=== PATIENT | male | born 1950 | race Caucasian/White ===

== ENCOUNTER 2025-04-07 12:57 | Outpatient (AMB) | payer MEDICARE, SELFPAY ==
--- NOTE | 2025-04-07 13:00 | MHC.OFFVIS ---
Intake Visit Reasons: 6m Accompanied by: Spouse Allergies moxifloxacin (Avelox) Allergy (Unknown, Verified 04/07/25 13:05) Unknown Medication List - Last Reconciled 04/07/25 by Christie Nieves CNP atorvastatin 80 mg PO DAILY levetiracetam 500 mg PO BID HPI Comments Details: He was doing okay. No seizures. He was taking levetiracetam twice a day. No missed doses. No medication side effects. Sleep was okay. Mood was okay. Scheduled for hernia repair surgery in 05/2025 at [facility]. He had his second seizure on 03/22/24 with hand thrashing, blank stare and his right hand went up then a generalized seizure for 2 minutes and post ictal for [address] negative. On 08/19/23, around 1 PM, 16 hours after his last beer, he started acting confused and took laundry out into the yard. His came home and found him in the yard with keys in the other hand and when she called him he just stared and did not respond, his right arm went up, he started to make an noise, spun around 3 times and fell flat on his face. He was pale and his breathing was labored. She made room for him to be able to breathe. Ambulance was there in 3 min. He was taken to [facility] treated for alcohol withdrawal and then given folic acid and B1. All of his workup was apparently negative and therefore it was considered alcohol related. He has stopped drinking completely. No previous history of seizure or syncope. PFSH Medical History HLD (hyperlipidemia) Seizure disorder Alcohol abuse Review of Systems Const Denies chills, Denies daytime sleepiness, Denies difficulty sleeping, Denies fatigue, Denies fever(s), Denies frequent falls, Denies headache(s), Denies increased appetite, Denies poor appetite, Denies snoring, Denies weakness, Denies weight gain and Denies weight loss Eyes Denies loss of vision ENT Denies vertigo, Denies dizziness, Denies headache(s) and Denies neck pain Card Denies chest pain at rest, Denies chest pain with activity, Denies syncope, Denies leg edema, Denies palpitations, Denies dyspnea and Denies dyspnea on exertion Resp Denies cough, Denies dyspnea, Denies dyspnea on exertion and Denies snoring GI Denies abdominal pain, Denies constipation, Denies heartburn, Denies diarrhea and Denies nausea Denies urinary frequency, Denies urinary incontinence and Denies urinary urgency Musc Denies abnormal gait, Denies back pain, Denies myalgias, Denies arthralgias, Denies neck pain, Denies numbness and Denies tingling Neuro Denies abnormal gait, Denies vertigo, Denies dizziness, Denies syncope, Denies frequent falls, Denies headache(s), Denies lack of coordination, Denies loss of vision, Denies memory loss, Denies numbness, Denies Other visual disturbances, Denies restless legs, Denies seizure-like activity, Denies tingling, Denies paresthesias, Denies tremor(s) and Denies weakness Psych Denies anxiety, Denies depression, Denies auditory hallucinations, Denies memory loss and Denies visual hallucinations Endo Denies fatigue and Denies palpitations Physical Exam Const Other: General Appearance:? normal, in no acute distress. Heart:? S1, S2 normal, no murmurs. Lungs:? clear anteriorly and posteriorly. Musculoskeletal:? normal. Extremities:? no edema. Psych:? alert, oriented, cognitive function intact, cooperative with exam. Neuro Other: Abnormal Neurological Findings:?none.? Mental Status: alert and oriented X 3. Normal attention, orientation, memory, and affect. Cranial Nerves: Pupils are equal, round, and reactive to light. External ocular muscles are intact. Visual clinton are full, no ptosis. Face is symmetrical, no facial weakness or droop. Facial sensations are normal. Tongue protrudes in midline. Palate elevates symmetrically. Shoulder shrugging is normal Motor Examination: Normal muscle tone, bulk and strength. No atrophy or fasciculations. No drift of the extended upper extremities. DTR 2+. Plantars are flexor. Straight Leg Raisin degrees. Sensory Exam: Normal light touch, temperature, pinprick, vibration, and joint-position sensations. Rhomberg sign is absent. Coordination: No ataxia. No titubation. Zyskha-ys-orcw, srea-sarf-fbie test, and rapid alternating movements were normal. Gait Exam: Within normal limits. Cerebellar Signs: Etevro-yn-rblx and alai-ps-agaa is normal. No dysdiadochokinesia. Extrapyramidal System: No tremor, rigidity with normal facial expressions. No bradykinesia. No bradyphrenia. Normal arm swing and posture. No propulsion or retropulsion. Speech: Normal. No dysphasia or dysarthria. Assessment & Plan Assessment & Plan (1) Seizure disorder: Code(s): G40.909 - Epilepsy, unspecified, not intractable, without status epilepticus Category: Medical Plan: Continue levetiracetam 500mg 1 tablet twice a day Coding Level of Care Code Est Pt Level 3 (65772) Diagnoses Seizure disorder G40.909
--- OUTSIDE RECORDS SUMMARY | 2025-04-07 13:49 | XMS_ITS | Clinical Summary ---
Author Organization 175 [facility] Address [address] [place] [address] Phone Care Team Providers Care Payroll Human Resources Assistant Name Role Phone Jerome Mclaughlin MD Primary Care Provider [phone] Allergies No known active allergies Medications atorvastatin (LIPITOR) 80 mg tablet TAKE 1 TABLET BY MOUTH EVERY DAY 90 tablet 3 08/10/2024 Active levETIRAcetam (KEPPRA) 500 mg tablet Take 1 tablet (500 mg total) by mouth 2 (two) times a day. Active Active Problems Problem Noted Date Diagnosed Date Atrial premature depolarization 03/29/2025 Assessment & Plan (03/30/2025 2:22 PM EDT): The patient has frequent atrial and ventricular premature complexes without associated symptoms. He has not had evidence of hemodynamically significant dysrhythmia and has never had presyncope or syncope. He has not any documentation of atrial fibrillation. The patient acknowledges quite a remarkable amount of stimulant ingestion including several cups of coffee and several cans of Coca-Cola over the course of the day. He also smokes marijuana. He formerly ingested significant amounts of alcohol but stopped this after sustaining a seizure several months ago. Orders: ECG 12 lead Recurrent right inguinal hernia 02/04/2025 Assessment & Plan (03/30/2025 2:22 PM EDT): Dr. Soares plans to perform repeat right inguinal herniorrhaphy due to presumed disruption of the mesh following intensive lifting. Hernia repair would be performed at low risk for cardiac complications. I do not feel that the patient requires further cardiac studies prior to anticipated surgery in the near future. Orders: ECG 12 lead Mixed hyperlipidemia 10/10/2023 Assessment & Plan (03/30/2025 2:22 PM EDT): The patient has a positive family history for premature atherosclerosis as well as treated hyperlipidemia. He has not had any manifestations of coronary or cerebrovascular insufficiency. LDL 53 mg/dl meets goal. Orders: ECG 12 lead Assessment & Plan (2025 12:20 PM EDT): Stable on Lipitor. Orders: CBC and differential; Future Comprehensive metabolic panel; Future Lipid panel with reflex to direct LDL; Future Thyroid stimulating hormone; Future Encounters Date Type Department Care Team Description 03/30/2025 1:30 PM EDT Office Visit [facility] Cardiology [address] [place] [address] Ale Healy MD Mixed hyperlipidemia (Primary Dx); Atrial premature depolarization; Recurrent right inguinal hernia 03/04/[address] [address] Hany Soares MD surgery canceled 03/04/2025 Telephone [facility]iology [facility] [address] [place] [address] Adebayo Brambila MD Failed EKG 02/09/2025 Telephone [facility] [address] [facility] [address] [place] [phone] Hany Soares MD Prior Authorization (03/10/25 Dr. Hany Soares) 02/04/2025 2:15 PM EDT Consult General [facility] [address] [address] Hany Soares MD Recurrent right inguinal hernia 2025 11:15 AM EDT Office Visit Internal Medicine - [place] [address] [facility] [address] [place] [address] Jerome Mclaughlin MD Mixed hyperlipidemia (Primary Dx); Seizure ([facility] V24, [facility] V28); Weight loss; Right inguinal hernia 01/08/2025 Telephone [facility] [address] [place] [address] Jerome Mclaughlin MD Referral ([facility] routine referral on 04/01/24.) from Last 3 Months Surgical History Surgery Date Site/Laterality Comments HERNIA REPAIR Medical History Medical History Date Comments Hypertension Seizure disorder ([facility] V24, [facility] V28) Arthritis Joint pain Right inguinal hernia Social History Tobacco Use Types Packs/Day Years Used Date Smoking Tobacco: Former Smokeless Tobacco: Never Alcohol Use Standard Drinks/Week Comments Not Currently 0 (1 standard drink = 0.6 oz pur e alcohol) Sex and Gender Information Value Date Recorded Sex Assigned at Not on file Legal Sex Male 8:24 PM EST Gender Identity Not on file Sexual Orientation Not on file Obstetrics History Last Filed Vital Signs Vital Sign Reading Time Taken Comments Blood Pressure 112/70 03/30/2025 1:19 PM EDT Pulse 77 03/30/2025 1:19 PM EDT Temperature 36.8 C (98.3 F) 2025 11:08 AM EDT Respiratory Rate - - Oxygen Saturation 94% 03/30/2025 1:19 PM EDT Inhaled Oxygen Concentration - - Weight 71.7 kg (158 lb 1.6 oz) 03/30/2025 1:19 P M EDT Height 180.3 cm (5' 11 ) 03/30/2025 1:19 PM EDT Body Mass Index 22.05 03/30/2025 1:19 PM EDT Plan of Treatment Upcoming Encounters Date Type Department Care Team (Latest Contact Info) Description 06/07/2025 8:45 AM EDT Hospital Encounter [facility] [place] [address] [place] [address] Hany Soares MD [address] [address] 06/07/2025 8:45 AM EDT - 06/07/2025 10:[address] [facility] [place] [address] [place] [phone] Hany Soares MD [address] [address] OPEN REPAIR RECURRENT RIGHT INGUINAL HERNIA W/MESH [75072 (CPT )] 06/22/2025 1:15 PM EDT Office Visit General Surgery - [place] [address] [phone] Hany Soares MD [address] [address] 01/31/2026 11:15 AM EDT Office Visit Internal Medicine - [place] [address] [address] Jerome Mclaughlin MD [address] [address] Scheduled Procedures Name Priority Associated Diagnoses Date/Ti me REPAIR HERNIA INGUINAL Recurrent right inguinal hernia 06/07/2025 8:45 AM EDT Health Maintenance Due Date Last Done Comments DTaP,Tdap,and Td Vaccines (1 - Tdap) 01/27/1967 Zoster Vaccines (1 of 2) 01/27/1998 Hepatitis C Screening 09/01/2022 Social Influencers of Health Screening 09/01/2022 RSV Immunization Adult Patients (1 - 1-dose 75+ series) 01/27/2023 COVID-19 Vaccine ( season) 2024 06/28/2024, 07/04/2023, 05/27/2022, Additional history exists Influenza Vaccine (#1) 2025 , 07/04/2023, 05/27/2022, Additional history exists Depression Screening 2026 2025 Falls Risk Assessment 2026 2025 Medicare Annual Wellness Visit 2026 2025 Cholesterol Screening (Lipid Panel) 2030 2025, 04/10/2024, 04/10/2024 Pneumococcal Vaccine: 50+ Years Completed 07/14/2020, 07/11/2019, 06/01/2013 HIB Vaccines Aged Out No longer eligi ble based on patient's age to complete this topic HPV Vaccines Aged Out No longer eligi ble based on patient's age to complete this topic Hepatitis A Vaccines Aged Out No long er eligible based on patient's age to complete this topic Hepatitis B Vaccines Aged Out No long er eligible based on patient's age to complete this topic IPV Vaccines Aged Out No longer eligi ble based on patient's age to complete this topic MMR Vaccines Aged Out No longer eligi ble based on patient's age to complete this topic Meningococcal ACWY Vaccine Aged Out N o longer eligible based on patient's age to complete this topic Meningococcal B Vaccine Aged Out No l onger eligible based on patient's age to complete this topic RSV Immunization Patients Under 20 months Aged Out No longer eligible based on patient's age to complete this topic Varicella Vaccines Aged Out No longer eligible based on patient's age to complete this topic Procedures Procedure Name Priority Date/Time Associated Diagnosis Comments ECG 12-LEAD Routine 03/30/2025 1:29 PM EDT Mixed hyperlipidemia Atrial premature depolarization Recurrent right inguinal hernia PROCEDURAL ECG Routine 03/03/2025 1:30 PM EDT Inguinal hernia CBC WITH AUTO DIFFERENTIAL Routine 2025 11:47 AM EDT Mixed hyperlipidemia Seizure (CMS/HCC V24, CMS/HCC V28) Weight loss COMPREHENSIVE METABOLIC PANEL Routine 2025 11:47 AM EDT Mixed hyperlipidemia Seizure (CMS/HCC V24, CMS/HCC V28) Weight loss LIPID PANEL WITH REFLEX TO DIRECT LDL Routine 2025 11:47 AM EDT Mixed hyperlipidemia Seizure (CMS/HCC V24, CMS/HCC V28) Weight loss THYROID STIMULATING HORMONE Routine 2025 11:47 AM EDT Mixed hyperlipidemia Seizure (CMS/HCC V24, CMS/HCC V28) Weight loss CBC AND DIFFERENTIAL Routine 2025 11:47 AM EDT Mixed hyperlipidemia Seizure (CMS/HCC V24, CMS/HCC V28) Weight loss from Last 3 Months Results * ECG 12 lead (03/30/2025 1:29 PM EDT) Ventricular Rate ECG 77 BPM GEMUSE Atrial Rate 77 BPM GEMUSE P-R Interval 192 ms GEMUSE QRS Duration 84 ms GEMUSE Q-T Interval 378 ms GEMUSE QTc 427 ms GEMUSE P Wave [place] 83 degrees GEMUSE R [place] -8 degrees GEMUSE T [place] 24 degrees GEMUSE ECG Interpretation Sinus rhythm with occasional Premature ventricular complexes and Premature atrial complexes Low voltage QRS Borderline ECG When compared with ECG of 03-MAR-2025 13:30, No significant change was found Confirmed by ALE HEALY ([id number]) on 03/30/2025 2:22:50 PM GEMUSE 03/30/2025 1:29 PM EDT 03/30/2025 2:22 PM EDT us Ale Healy MD ECG ORDERABLES Final Result GEMUSE * ECG 12 lead - Procedural (No Charge) (03/03/2025 1:30 PM EDT) Ventricular Rate ECG 97 BPM GEMUSE Atrial Rate 98 BPM GEMUSE QRS Duration 82 ms GEMUSE Q-T Interval 364 ms GEMUSE QTc 462 ms GEMUSE R [place] -20 degrees GEMUSE T [place] 16 degrees GEMUSE ECG Interpretation Critical Test Result: AV Block Sinus rhythm with Premature supraventricular complexes and with occasional Premature ventricular complexes Low voltage QRS Abnormal ECG When compared with ECG of 10-MAY-2015 10:34, Premature ventricular complexes are now Present Premature supraventricular complexes are now Present Vent. rate has increased BY 34 BPM QT has lengthened Confirmed by Altaf TALLEY JOHN ([id number]) on 03/03/2025 9:19:35 PM GEMUSE 03/03/2025 1:30 PM EDT 03/03/2025 9:19 PM EDT Hany Soares MD ECG ORDERABLES Final Resul t Performing Organization Address City/[facility]/ZIP Co de Phone Number GEMUSE * Lipid panel with reflex to direct LDL (2025 11:47 AM EDT) Cholesterol 124 0 - 200 mg/dL LAB CHEMISTRY METHOD 2025 4:03 PM EDT [facility] Triglycerides 89 0 - 150 mg/dL LAB CHEMISTRY METHOD 2025 4:03 PM EDT [facility] HDL 53 >=40 mg/dL LAB CHEMISTRY METHOD 2025 4:03 PM EDT [facility] LDL Calculated 53 0 - 100 mg/dL LAB CHEMISTRY METHOD 2025 4:03 PM EDT [facility] VLDL Cholesterol K[place] 17.8 mg/dL LAB CHEMISTRY METHOD 2025 4:03 PM EDT [facility] Non HDL Chol. (LDL+VLDL) 71 <145 mg/dL LAB CHEMISTRY METHOD 2025 4:03 PM EDT [facility] Chol/HDL Ratio 2.3 0.0 - 4.4 LAB CHEMISTRY METHOD 2025 4:03 PM EDT [facility] Blood Venous blood specimen / Unknown Venipuncture / Unknown 2025 11:47 AM EDT 2025 11:47 AM EDT Jerome Mclaughlin MD LAB BLOOD ORDERABLES Final Resul t Performing Organization Address City/[facility]/ZIP Co de Phone Number [facility] [address] [place] [address], [place] [phone] * (ABNORMAL) CBC auto differential (2025 11:47 AM EDT) [facility] WBC 9.6 4.8 - 10.8 K/mcL LAB HEMETOLOGY METHOD 2025 2:37 PM EDT [facility] RBC 4.50 4.50 - 5.50 M/mcL LAB HEMETOLOGY METHOD 2025 2:37 PM EDT [facility] Hemoglobin 14.4 13.5 - 17.5 g/dL LAB [facility]Y [facility]25 [facility] Hematocrit 43.0 42.0 - 54.0 % LAB HEMETOLOGY METHOD 2025 2:37 [facility] MCV 95.1 79.0 - 98.0 FL LAB HEMETOLOGY METHOD 2025 2:37 [facility] MCH 31.9 27.0 - 32.0 pcg LAB HEMETOLOGY METHOD 2025 2:37 [facility] MCHC 33.5 32.0 - 37.0 g/dL LAB HEMETOLOGY METHOD 2025 2:37 [facility] RDW 12.6 11.0 - 15.0 % LAB HEMETOLOGY METHOD 2025 2:37 PM EDT [facility] Platelets 329 130 - 400 K/mcL LAB HEMETOLOGY METHOD 2025 2:37 [facility] MPV 9.6 7.0 - 11.0 FL LAB HEMETOLOGY METHOD 2025 2:37 [facility] NRBC 0.0 <1.0 % LAB HEMETOLOGY METHOD 2025 2:37 PM EDT [facility] NRBC Absolute 0.00 <0.10 K/mcL LAB HEMETOLOGY METHOD 2025 2:37 PM EDT [facility] Neutrophils Relative 61.8 % LAB HEMETOLOGY METHOD 2025 2:[address] [facility] Lymphocytes Relative 26.1 % LAB HEMETOLOGY METHOD 2025 2:37 [facility] Monocytes Relative 9.5 % LAB HEMETOLOGY METHOD 2025 2:37 [facility] Eosinophils Relative 1.4 % LAB HEMETOLOGY METHOD 2025 2:[address] [facility] Basophils Relative 0.8 % LAB HEMETOLOGY METHOD 2025 2:[address] [facility] Immature Granulocytes Relative 0.4 % LAB HEMETOLOGY METHOD 2025 2:[address] [facility] Neutrophils Absolute 5.91 1.50 - 7.00 K/mcL LAB HEMETOLOGY METHOD 2025 2:[address] [facility] Lymphocytes Absolute 2.50 1.00 - 5.00 K/mcL LAB HEMETOLOGY METHOD 2025 2:[address] [facility] Monocytes Absolute 0.91 0.20 - 1.00 K/mcL LAB HEMETOLOGY METHOD 2025 2:37 PM T [facility] Eosinophils Absolute 0.13 0.00 - 0.50 K/mcL LAB HEMETOLOGY METHOD 2025 2:[address] [facility] Basophils Absolute 0.08 0.00 - 0.20 K/mcL LAB HEMETOLOGY METHOD 2025 2:[address] [facility] Immature Granulocytes Absolute 0.04(H) 0.00 - 0.03 K/mcL LAB HEMETOLOGY METHOD 2025 2:37 PM EDT [facility] Blood Venous blood specimen / Unknown Venipuncture / Unknown 2025 11:47 AM EDT 2025 11:47 AM EDT us Jerome Mclaughlin MD LAB BLOOD ORDERABLES Final Resul t Performing Organization Address [facility]/ZIP Co de Phone Number [facility] [address] [place] [address], [place] [phone] * Thyroid stimulating hormone (2025 11:47 AM EDT) TSH 1.00 0.40 - 4.00 mcIU/mL LAB CHEMISTRY METHOD 2025 6:01 PM EDT [facility] Blood Venous blood specimen / Unknown Venipuncture / Unknown 2025 11:47 AM EDT 2025 11:47 AM EDT us Jerome Mclaughlin MD LAB BLOOD ORDERABLES Final Resul t Performing Organization Address [facility]/ZIP Co de Phone Number [facility] [address] [place] [address], [place] [phone] * (ABNORMAL) Comprehensive metabolic panel (2025 11:47 AM EDT) Sodium 139 133 - 145 mmol/L LAB CHEMISTRY METHOD 2025 4:05 PM EDT [facility] Potassium 4.9 3.5 - 5.5 mmol/L LAB CHEMISTRY METHOD 2025 4:05 PM EDT [facility] Chloride 105 96 - 110 mmol/L LAB CHEMISTRY METHOD 2025 4:05 PM EDT [facility] CO2 32 21 - 32 mmol/L LAB CHEMISTRY METHOD 2025 4:05 PM EDT [facility] Anion Gap 2(L) 3 - 11 LAB CHEMISTRY METHOD 2025 4:[address] [facility] Glucose 71 70 - 100 mg/dL LAB CHEMISTRY METHOD 2025 4:[address] [facility] BUN 7 5 - 25 mg/dL LAB CHEMISTRY METHOD 2025 4:[address] [facility] Creatinine 0.84 0.70 - 1.30 mg/dL LAB CHEMISTRY METHOD 2025 4:[address] [facility] eGFR 90 >=60 mL/min/1. 73m2 LAB CHEMISTRY METHOD 2025 4:[address] [facility] Comment:Calculation based on the Chronic Kidney Disease Epidemiology Collaboration (CKD-EPI) equation refit without adjustment for race. BUN/Creatinine Ratio 8.3 LAB CHEMISTRY METHOD 2025 4:[address] [facility] Calcium 9.2 8.5 - 10.5 mg/dL LAB CHEMISTRY METHOD 2025 4:05 [facility] AST (SGOT) 32 10 - 42 unit/L LAB CHEMISTRY METHOD 2025 4:05 [facility] ALT (SGPT) 50 10 - 60 unit/L LAB CHEMISTRY METHOD 2025 4:[address] [facility] Alkaline Phosphatase 125(H) 42 - 121 unit/L LAB CHEMISTRY METHOD 2025 4:[address] [facility] Total Protein 7.2 6.0 - 8.0 g/dL LAB CHEMISTRY METHOD 2025 4:[address] [facility] Albumin 4.1 3.2 - 5.0 g/dL LAB CHEMISTRY METHOD 2025 4:[address] [facility] Total Bilirubin 0.6 0.0 - 1.4 mg/dL LAB CHEMISTRY METHOD 2025 4:[address] [facility] Blood Venous blood specimen / Unknown Venipuncture / Unknown 2025 11:47 AM EDT 2025 11:47 AM EDT Jerome Mclaughlin MD LAB BLOOD ORDERABLES Final Resul t [facility] [address] [place] [address], [place] [phone] from Last 3 Months Insurance [employer] Care Teams Payroll Human Resources Assistant Relationship Specialty Start Date End Date Jerome Mclaughlin MD [address] [address] PCP - General Internal Medicine 12/23/18
== END 2025-04-07 13:11 | disposition home or self-care (01) ==
LOC: HO.HSM 12:58
PROVIDERS: PCP Internal Medicine; Referring Provider Student in an Organized Health Care Education/Training Program; Visit Provider Registered Nurse
DX: G40.909 Epilepsy, unspecified, not intractable, without status epilepticus (principal)
CPT/HCPCS: 99213

== ENCOUNTER → 2025-04-07 12:57 | Outpatient (BNVA) | payer MEDICARE, SELFPAY | PROVIDERS: PCP Internal Medicine; Referring Provider Student in an Organized Health Care Education/Training Program; Visit Provider Registered Nurse | DX: G40.909 Epilepsy, unspecified, not intractable, without status epilepticus (principal); Z79.899 Other long term (current) drug therapy | CPT/HCPCS: 99212 ==